=== PATIENT | male | born 1965 | race African-American/Black ===

== ENCOUNTER 2019-10-29 18:44 | Emergency (ER) | payer SELFPAY ==
[~2019-10-29] VITALS: Ht 175.3 cm; Wt 70.0 kg
[2019-10-29 20:55] LABS: BASOPHILS % 0.8 % (0.0-2.0); EOSINOPHILS % 1.3 % (0.0-5.0); HEMATOCRIT. 46.5 % (42.0-52.0); HEMOGLOBIN. 15.7 g/dL (14.0-18.0); LYMPHOCYTES % 21.4 % (20.0-50.0); MEAN CORPUSCULAR HEMOGLOBIN 31.7 pg (28.0-32.0); MEAN CORPUSCULAR VOLUME 93.9 fL (80.0-94.0); MEAN PLATELET VOLUME 6.8 fl (7.4-10.4); MONOCYTES % 6.9 % (2.0-8.0); NEUTROPHILS % 69.6 % (40.0-76.0); PLATELET 318 x1000/uL (130-400); RED BLOOD CELL COUNT 4.95 mill/uL (4.7-6.1); RED CELL DISTRIBUTION WIDTH 13.5 % (11.6-14.6)
[2019-10-29 21:01] LABS: CHLORIDE 106 mEq/L (98-107)
[2019-10-29 21:27] LABS: ETHANOL BLOOD 381 mg/dL
[2019-10-29 21:43] LABS: CLARITY URINE CLEAR (CLEAR); COLOR URINE YELLOW (YELLOW); KETONES URINE NEGATIVE (NEGATIVE); LEUKOCYTE ESTERASE URINE NEGATIVE (NEGATIVE); NITRITE URINE NEGATIVE (NEGATIVE); OCCULT BLOOD URINE NEGATIVE (NEGATIVE); PROTEIN URINE NEGATIVE (NEGATIVE); SPECIFIC GRAVITY URINE 1.013 (1.005-1.030); UROBILINOGEN URINE 0.2 E.U./dL (0.2-1.0)
[2019-10-29 22:06] LABS: *BARBITURATES SCREEN URINE NEGATIVE (NEGATIVE); *BENZODIAZEPINES SCREEN URINE NEGATIVE (NEGATIVE); *COCAINE SCREEN URINE NEGATIVE (NEGATIVE); CANNABINOID URINE SCREEN PRESUMTIVE POSITIVE (NEGATIVE); METHADONE URINE SCREEN NEGATIVE (NEGATIVE); OPIATES URINE SCREEN NEGATIVE (NEGATIVE); PHENCYCLIDINE URINE SCREEN NEGATIVE (NEGATIVE)
[2019-10-29 22:08] LABS: *AMPHETAMINES SCREEN URINE NEGATIVE (NEGATIVE)
[2019-10-29] MEDS ORDERED: POTASSIUM CHLORIDE 20MEQ TABLET SR PO ONE (22:15)
[2019-10-30] MEDS ORDERED: POTASSIUM CHLORIDE 20MEQ TABLET SR PO NR (05:45)
[2019-10-30 05:54] VITALS: BP 110/71
== END 2019-10-30 05:56 | disposition home or self-care (01) ==
LOC: ER 18:44
DX: T51.0X1A Toxic effect of ethanol, accidental (unintentional), initial encounter (principal); E87.6 Hypokalemia; Y90.8 Blood alcohol level of 240 mg/100 ml or more; Y92.488 Other paved roadways as the place of occurrence of the external cause
CPT/HCPCS: 36415; 80053; 80305; 80307; 80320; 80329; 81003; 85025; 99284; G0480